=== PATIENT | male | born 1955 | race Caucasian/White ===

== ENCOUNTER 2016-10-31 23:37 | Emergency (ER) | payer BC ==
[~2016-10-31] VITALS: Ht 170.2 cm; Wt 68.1 kg
[~2016-10-31 23:37] MED LIST: AUGMENTIN875 MG PO; Combivent IH; NOHOMEMEDS; PEPTO BISMOL240 ML PO; TUMS500 MG PO; ZITHROMAX500 MG PO
[2016-11-01] MEDS ORDERED: PERCOCET 5/31 TABLET PO (00:37)
[2016-11-01] MEDS ORDERED: ZOFRAN8 MG PO (01:40)
[2016-11-01 01:55] VITALS: BP 153/88
== END 2016-11-01 02:34 | disposition home or self-care (01) ==
LOC: EME 23:37
PROC: 2W3QX1Z Immobilization of Right Lower Leg using Splint (ICD-10-PCS; principal; 2016-11-01)
DX: S92.334A Nondisplaced fracture of third metatarsal bone, right foot, initial encounter for closed fracture (principal); S92.341A Displaced fracture of fourth metatarsal bone, right foot, initial encounter for closed fracture; V28.2XXA Unspecified motorcycle rider injured in noncollision transport accident in nontraffic accident, initial encounter; Y92.009 Unspecified place in unspecified non-institutional (private) residence as the place of occurrence of the external cause; F17.200 Nicotine dependence, unspecified, uncomplicated
CPT/HCPCS: 73610; 73630; 99281; 99284

== ENCOUNTER 2017-02-19 11:04 | Emergency (ER) | payer BC ==
[~2017-02-19] VITALS: Ht 170.2 cm; Wt 77.0 kg
[~2017-02-19 11:04] MED LIST changes: +PERCOCET 5/31 TABLET PO; +ZOFRAN8 MG PO
[2017-02-19 13:12] VITALS: BP 129/91
== END 2017-02-19 13:13 | disposition home or self-care (01) ==
LOC: EME 11:04
PROC: 0W3Q7ZZ Control Bleeding in Respiratory Tract, Via Natural or Artificial Opening (ICD-10-PCS; principal; 2017-02-19)
DX: R04.0 Epistaxis (principal); F17.200 Nicotine dependence, unspecified, uncomplicated
CPT/HCPCS: 99281; 99284

== ENCOUNTER 2017-07-20 07:36 | Emergency (ER) | payer BC ==
[~2017-07-20] VITALS: Ht 170.2 cm; Wt 72.6 kg
[2017-07-20 10:19] LABS: APPEARANCE CLEAR ((CLEAR)); BILIRUBIN NEGATIVE; BLOOD NEGATIVE; COLOR YELLOW ((YELLOW)); GLUCOSE (STRIP) NEGATIVE; KETONES NEGATIVE; LEUKOCYTES NEGATIVE; NITRITE NEGATIVE; PROTEIN (STRIP) NEGATIVE; SPECIFIC GRAVITY 1.014 (1.000-1.030); UCUL ADDED? NO; UROBILINOGEN 0.2 MG/DL (0.2-1.0)
[2017-07-20] MEDS ORDERED: PERCOCET 5/31 TABLET PO (10:30)
[2017-07-20] MEDS ORDERED: FLEXERIL10 MG PO (10:30)
[2017-07-20 11:00] VITALS: BP 138/86
== END 2017-07-20 11:01 | disposition home or self-care (01) ==
LOC: EME 07:36
PROVIDERS: Emergency Medicine
DX: M54.5 Low back pain (principal); F17.200 Nicotine dependence, unspecified, uncomplicated; Z88.2 Allergy status to sulfonamides
CPT/HCPCS: 72100; 81003; 99281; 99284